=== PATIENT | male | born 1930 | race Caucasian/White ===

== ENCOUNTER 2017-06-19 08:44 | Day surgery (SDC) | payer MEDICARE, BC ==
[~2017-06-19] VITALS: Ht 182.9 cm; Wt 83.6 kg
[~2017-06-19 08:44] MED LIST: BUPIVACAINE/PF 0.5% ONE; RIVA20TA PO; VITA1TAB3 PO
[2017-06-19 09:14] VITALS: BP 145/84
[2017-06-19] MEDS ORDERED: LIDOCAINE 1%, 2ML ONE (09:21)
[2017-06-19] MEDS ORDERED: SUCCINYLCHOLINE 20 MG/ML, 10ML ONE (09:37)
[2017-06-19] MEDS ORDERED: PROPOFOL 10 MG/ML, 20ML ONE (09:37)
[2017-06-19] MEDS ORDERED: CEFAZOLIN 1,000 MG ONE (09:37)
[2017-06-19] MEDS ORDERED: ONDANSETRON 2MG/ML, 2ML ONE (09:37)
[2017-06-19] MEDS ORDERED: DEXAMETHASONE 4 MG/ML, 5ML ONE (09:37)
[2017-06-19] MEDS ORDERED: LABETALOL 5MG/ML, 20ML IV PRN (10:30)
[2017-06-19] MEDS ORDERED: MEPERIDINE/PF 25MG/0.5ML IVPush PRN (10:30)
[2017-06-19] MEDS ORDERED: hydrALAzine 20 MG/ML, 1ML IV PRN (10:30)
[2017-06-19] MEDS ORDERED: MIDAZOLAM 1 MG/ML, 2ML IV PRN (10:30)
[2017-06-19] MEDS ORDERED: PROMETHAZINE 25 MG/ML, 1ML IV PRN (10:30)
[2017-06-19] MEDS ORDERED: ONDANSETRON 2MG/ML, 2ML IVPush PRN (10:30)
[2017-06-19] MEDS ORDERED: DIAZEPAM 5 MG/ML, 2ML IVPush PRN (10:30)
[2017-06-19] MEDS ORDERED: FENTANYL PF 100 MCG/2ML IV PRN (10:30)
[2017-06-19] MEDS ORDERED: ACETAMINOPHEN 325 MG TABLET PO PRN (10:30)
[2017-06-19] MEDS ORDERED: OXYcodone 5 MG/5 ML ORAL.SOL UDC PO PRN (10:30)
[2017-06-19] MEDS ORDERED: HYDROmorphone 1 MG/ML, 1ML IV PRN (10:30)
[2017-06-19] MEDS ORDERED: ALBUTEROL/IPRATROPIUM 2.5MG/0.5MG, 3 ML NPPB PRN (10:30)
[2017-06-19] MEDS ORDERED: FENTANYL PF 100 MCG/2ML ONE (10:42)
[2017-06-19] MEDS ORDERED: ACETAMINOPHEN 650 MG/20.3 ML UDC ONE (11:20)
[2017-06-19] MEDS ORDERED: OXYcodone 5 MG/5 ML ORAL.SOL UDC ONE (11:21)
== END 2017-06-19 14:00 | disposition home or self-care (01) ==
LOC: OUT 08:44
PROVIDERS: ATTEND Colon & Rectal Surgery
DX: D12.8 Benign neoplasm of rectum (principal); I82.409 Acute embolism and thrombosis of unspecified deep veins of unspecified lower extremity; Z98.890 Other specified postprocedural states
CPT/HCPCS: 45171; 88305; J0330; J0690; J1100; J2405; J2704; J3010; J3490